=== PATIENT | male | born 1960 | race Caucasian/White ===

== ENCOUNTER 2024-12-17 23:06 | Emergency (ER) | payer MEDICARE, OTHER ==
[2024-12-18] MEDS ORDERED: Tetracaine 0.5% PF 4 ML BOT ONE (00:16)
[2024-12-18] MEDS ORDERED: Fluorescein Opthalmic Strip ONE (00:16)
[2024-12-18] MEDS ORDERED: Erythromycin Base 0.5% Oint 1 GM TUBE ONE (00:32)
== END 2024-12-18 00:35 | disposition home or self-care (01) ==
LOC: CSHERS 23:06
DX: S05.02XA Injury of conjunctiva and corneal abrasion without foreign body, left eye, initial encounter (principal); E11.9 Type 2 diabetes mellitus without complications; W44.8XXA Other foreign body entering into or through a natural orifice, initial encounter
CPT/HCPCS: 99283